=== PATIENT | male | born 1990 | race Caucasian/White ===

== ENCOUNTER 2016-12-15 10:15 | Emergency (ER) | payer OTHER ==
[~2016-12-15] VITALS: Ht 170.2 cm; Wt 72.6 kg
--- NOTE | 2016-12-15 10:21 | ED GENERAL ADULT ---
History of Present Illness General Chief Complaint: Abdominal Pain/Flank Pain Stated Complaint: ABD PAIN, VOMITING BLOOD Source: patient Exam Limitations: no limitations Vital Signs & Intake/Output Vital Signs & Intake/Output ED Intake and Output 12/16 0000 12/15 1200 Intake Total 60 Output Total Balance 60 Intake, Oral 60 Patient 160 lb Weight Weight Reported by Patient Measurement Method Allergies Coded Allergies: shrimp (Severe, HIVES 12/15/16) Reconcile Medications No Known Home Medications Triage Note: PT STATES HE USED TO HAVE AN ULCER. STATES MID ABDOMINAL PAIN X 2 DAYS AND TODAY HE VOMITED A LITTLE BLOOD 2-3 TIMES Triage Nurses Notes Reviewed? yes Onset: Abrupt Duration: week(s): Timing: recent history HPI: 12/15/16 26-year-old male presents to the emergency department for epigastric abdominal pain and vomiting. The patient states that he has a history of peptic ulcer disease. He says that over the past week he's had intermittent episodes of epigastric abdominal pain and has vomited several times over the past 12 hours. There was a small amount of blood in the vomitus. The onset of the symptoms was abrupt, the duration has been approximately the last week, the severity is significant as his symptoms required him to come to the emergency department for care. He has no other past medical history other than peptic ulcer disease, no significant past surgical history. He denies any significant drug allergies but is allergic to shellfish. He does smoke but does not drink. Past History Travel History Traveled to [place] past 21 day No Medical History Any Pertinent Medical History? see below for history Gastrointestinal: PUD Surgical History Surgical History: non-contributory Psychosocial History What is your primary language [place] Citizen Tobacco Use: Current Not Daily Daily Tobacco Use Amount/Type: =< 4 Cigarettes daily ETOH Use: denies use Illicit Drug Use: denies illicit drug use Family History Hx Contributory? No Review of Systems Review of Systems Constitutional: Denies: fever. EENTM: Reports: no symptoms. Respiratory: Denies: short of breath. Cardiovascular: Denies: chest pain. GI: Reports: abdominal pain, vomiting. Denies: diarrhea. Genitourinary: Reports: no symptoms. Musculoskeletal: Reports: no symptoms. Skin: Reports: no symptoms. Neurological/Psychological: Reports: no symptoms. Hematologic/Endocrine: Reports: see HPI. Immunologic/Allergic: Reports: no symptoms. Physical Exam Physical Exam General Appearance: well developed/nourished, alert, awake, anxious, mild distress Head: atraumatic, normal appearance Eyes: Bilateral: normal appearance, PERRL, EOMI. Ears, Nose, Throat: normal pharynx, normal ENT inspection Neck: normal inspection, supple, full range of motion Respiratory: normal breath sounds, chest non-tender, no respiratory distress Cardiovascular: regular rate/rhythm Peripheral Pulses: 4+ radial (R), 4+ radial (L) Gastrointestinal: soft, non-tender Rectal: normal exam, normal rectal tone, heme negative stool Back: normal inspection, normal range of motion Extremities: normal inspection, normal range of motion, no edema Neurologic/Psych: no motor/sensory deficits, awake, alert, oriented x 3 Skin: intact, normal color, warm/dry Core Measures ACS in differential dx? No CVA/TIA Diagnosis: No Severe Sepsis Present: No Septic Shock Present: No Progress Differential Diagnoses I considered the following diagnoses in my evaluation of the patient: [Gastritis , pancreatitis, peptic ulcer disease, inflammatory bowel disease, Sophia-Horner tear, mediastinitis, esophageal rupture, cholecystitis cholelithiasis] Plan of Care: Orders Procedure Date/time Status XRY-CHEST XRAY, PA AND LATERAL 12/15 1103 Active TROPONIN LEVEL 12/15 1020 Active PROTHROMBIN TIME 12/15 1020 Active COMPREHENSIVE METABOLIC PANEL 12/15 1020 Active CBC WITHOUT DIFFERENTIAL 12/15 1020 Active AMYLASE 12/15 1020 Active Initial ED EKG: none Departure Departure Disposition: HOME OR SELF CARE Condition: Stable Clinical Impression Primary Impression: Abdominal pain Departure Forms: Customer Survey General Discharge Information Prescriptions: Current Visit Scripts No Known Home Medications Comments Patient's labs are unremarkable. He did receive a GI cocktail with some minimal relief. His abdomen is soft and nontender in the emergency department. Rectal was guaiac negative. He was instructed to take Protonix [id number] as directed, follow up with GI this week. Return to the emergency department immediately should his pain return or should he vomit up blood again. Critical Care Note Critical Care Note Critical Care Time: non-applicable
[2016-12-15 11:13] LABS: ABSOLUTE BASOPHIL COUNT 0 /CUMM (0.0-0.2); ABSOLUTE EOSINOPHIL COUNT 0 /CUMM (0.0-0.7); ABSOLUTE GRANULOCYTE CT 7.5 /CUMM (1.4-6.5); ABSOLUTE LYMPH COUNT 1.3 /CUMM (1.2-3.4); ABSOLUTE MONOCYTE COUNT 0.5 /CUMM (0.10-0.60); BASOPHIL % 0.2 % (0.0-2.0); EOSINOPHIL % 0.1 % (0-5); GRANULOCYTE % 80.4 % (42.2-75.2); HEMATOCRIT 47.9 % (42-52); MEAN CORPUSCULAR HGB 30.9 PG (27.0-31.0); MEAN CORPUSCULAR HGB CONC 34.4 G/DL (33.0-37.0); MEAN CORPUSCULAR VOLUME 89.9 FL (80.0-94.0); MEAN PLATELET VOLUME 9.9 FL (7.4-10.4); PLATELET COUNT 198 /CUMM (130-400); RBC DISTRIBUTION WIDTH 12.9 % (11.5-14.5); RED BLOOD CELL CT 5.33 /CUMM (4.70-6.10); WHITE BLOOD CELL COUNT 9.3 /CUMM (4.8-10.8)
[2016-12-15 11:26] LABS: PT 12.1 SEC (9.4-12.5)
--- NOTE | 2016-12-15 12:31 | RADIOLOGY REPORT ---
EXAMINATION: XR CHEST CLINICAL INFORMATION: 26-year-old man with abdominal pain and vomiting. COMPARISON: None TECHNIQUE: 2 views of the chest were obtained. FINDINGS: The lungs are well expanded and clear, without evidence of focal airspace consolidation or pneumothorax. Cardiomediastinal contours are normal. There are no pleural effusions. Mild degenerative changes are seen throughout the thoracic spine. IMPRESSION: No radiographic evidence of an acute cardiopulmonary process.
[2016-12-15 12:43] VITALS: BP 132/68
== END 2016-12-15 13:28 ==
LOC: ERH 10:15
PROVIDERS: Emergency Medicine
DX: R10.13 Epigastric pain (principal)
CPT/HCPCS: 36415